=== PATIENT | female | born 1960 | race Caucasian/White ===

== ENCOUNTER 2017-06-14 21:43 | Emergency (ER) | payer OTHER ==
[~2017-06-14] VITALS: Ht 170.2 cm; Wt 90.0 kg
[~2017-06-14 21:43] MED LIST: CALTTAB2 PO; CETI10 PO; CYAN1000P IM; FLUT1SPR9 NASAL; FOSA70TA PO; IBUP600T26 PO; Z.0.WALKERFRONT; [UNRECOGNIZED DRUG - CODE] IM
[2017-06-14 21:54] VITALS: BP 126/76; PULSE 74; RESP 16; TEMP 98.5; O2SAT 97
--- NOTE | 2017-06-14 22:10 | PD ---
HPI Chief Complaint: Psychiatric Symptoms Time Seen by Provider: 22:06 Travel History International Travel<30 days: No Contact w/Intl Traveler<30days: No Traveled to known affect area: No History of Present Illness HPI 56 year old female presents to the emergency department for psychiatric evaluation under Morris Act by police. According to the Morris Act, the patient wrote text messages to her sister making plans for her dogs and estate. According to the Morris Act, the patient took an unknown amount of pills. The patient denies this. She states she took 1 hydrocodone for her arthritis. The patient adamantly denies any suicidal or homicidal ideation. She adamantly denies overdosing on pills. The Morris Act states there was an empty pill bottle in the residence. The patient states she doesn't have any idea what that was. I asked the officer who Morris Acter her and he stated it was an unmarked bottle and states she denied taking any medications to him too. The patient denies any complaints at this time. She states she is worried about her kids, which are actually her dogs. Patient states she had 1 glass of wine. She denies any tobacco use or illicit drug use. PFSH Past Medical History Hx Anticoagulant Therapy: No Blood Disorders: No Anxiety: Yes Cancer: No Cardiovascular Problems: No Chemotherapy: No Cerebrovascular Accident: No Diabetes: No Diminished Hearing: No Endocrine: No Genitourinary: No Hepatitis: No Hiatal Hernia: No Immune Disorder: No Musculoskeletal: Yes (CHRONIC BACK PAIN) Neurologic: No (l hand numbness in past) Psychiatric: No Reproductive: No Respiratory: No Immunizations Current: No Radiation Therapy: No Thyroid Disease: No Tetanus Vaccination: > 5 Years Influenza Vaccination: No Menopausal: Yes : 2 Para: 0 Miscarriage: 2 Past Surgical History Abdominal Surgery: Yes (gastric bypass) AICD: No Arteriovenous Shunt: No Body Medical Devices: plates in wrist bilat, l hip Cholecystectomy: Yes Ear Surgery: No Eye Surgery: No Genitourinary Surgery: No Gynecologic Surgery: No Hysterectomy: No Insulin Pump: No Joint Replacement: Yes (rt hip) Oral Surgery: No Pacemaker: No Tonsillectomy: Yes Other Surgery: Yes (left hip, left knee, right ankle ) Social History Alcohol Use: Yes (few times per week) Tobacco Use: No Substance Use: No Allergies-Medications (Allergen,Severity, Reaction): Coded Allergies: No Known Allergies (Verified , 7/31/17) Reported Meds & Prescriptions Reported Meds & Active Scripts Active Reported Hydrocodone-Acetaminophen 7.5-325 mg Tab 1 Tab PO Q4H PRN Review of Systems Except as stated in HPI: all other systems reviewed are Neg Physical Exam Narrative GENERAL: Well-nourished, well-developed female patient, ambulatory. Afebrile. Patient has smell of alcohol on her breath. SKIN: Focused skin assessment warm/dry. HEAD: Normocephalic. Atraumatic. EYES: No scleral icterus. No injection or drainage. NECK: Supple, trachea midline. No JVD or lymphadenopathy. CARDIOVASCULAR: Regular rate and rhythm without murmurs, gallops, or rubs. RESPIRATORY: Breath sounds equal bilaterally. No accessory muscle use. Lungs sounds are clear to auscultation. GASTROINTESTINAL: Abdomen soft, non-tender, nondistended. MUSCULOSKELETAL: No cyanosis, or edema. PSYCHIATRIC: No delusional thought processes. No hallucinations. Data Data Last Documented VS Vital Signs Date Time Temp Pulse Resp B/P Pulse Ox O2 Delivery O2 Flow Rate FiO2 06/14/17 21:55 73 16 06/14/17 21:54 98.5 126/76 97 Orders Complete Blood Count With Diff (06/14/17 22:05) Comprehensive Metabolic Panel (06/14/17 22:05) Psych Screen (06/14/17 22:05) Drug Screen, Random Urine (06/14/17 22:05) Alcohol (Ethanol) (06/14/17 22:05) Salicylates (Aspirin) (06/14/17 22:05) Tylenol (Acetaminophen) (06/14/17 22:05) Potassium, Serum (K) (06/14/17 23:03) Labs Laboratory Tests Test 06/14/17 22:10 White Blood Count 5.0 TH/MM3 Red Blood Count 4.63 MIL/MM3 Hemoglobin 14.2 GM/DL Hematocrit 43.7 % Mean Corpuscular Volume 94.4 FL Mean Corpuscular Hemoglobin 30.7 PG Mean Corpuscular Hemoglobin 32.5 % Concent Red Cell Distribution Width 16.6 % Platelet Count 170 TH/MM3 Mean Platelet Volume 10.0 FL Neutrophils (%) (Auto) 48.1 % Lymphocytes (%) (Auto) 40.6 % Monocytes (%) (Auto) 5.3 % Eosinophils (%) (Auto) 5.3 % Basophils (%) (Auto) 0.7 % Neutrophils # (Auto) 2.4 TH/MM3 Lymphocytes # (Auto) 2.0 TH/MM3 Monocytes # (Auto) 0.3 TH/MM3 Eosinophils # (Auto) 0.3 TH/MM3 Basophils # (Auto) 0.0 TH/MM3 CBC Comment DIFF FINAL Differential Comment Sodium Level 140 MEQ/L Potassium Level 5.8 MEQ/L Chloride Level 107 MEQ/L Carbon Dioxide Level 24.7 MEQ/L Anion Gap 8 MEQ/L Blood Urea Nitrogen 12 MG/DL Creatinine 0.65 MG/DL Estimat Glomerular Filtration 94 ML/MIN Rate Random Glucose 78 MG/DL Calcium Level 9.1 MG/DL Total Bilirubin 0.3 MG/DL Aspartate Amino Transf 56 U/L (AST/SGOT) Alanine Aminotransferase 29 U/L (ALT/SGPT) Alkaline Phosphatase 109 U/L Total Protein 7.8 GM/DL Albumin 3.6 GM/DL Salicylates Level LESS THAN 1.7 MG/DL Acetaminophen Level LESS THAN 2.0 MCG/ML Ethyl Alcohol Level 200 MG/DL [facility] Medical Decision Making Medical Screen Exam Complete: Yes Emergency Medical Condition: Yes Medical Record Reviewed: Yes Differential Diagnosis Depression versus anxiety versus medication overdose versus medical clearance Narrative Course 56-year-old female presents to the emergency Department under Morris act by local police. The patient denies taking any medications other than one hydrocodone today. She does state she had one glass of wine. She has no complaints at this time. CBC, CMP, alcohol level, urine drug screen, salicylate level, Tylenol level are ordered and pending. CBC shows no acute abnormality. CMP shows hyperkalemia of 5.8. Salicylate level is less than 1.7. Acetaminophen levels less than 2.0. Alcohol level is 200. Potassium level will be rechecked. Patient will be medically cleared if potassium is within normal limits. Diagnosis Primary Impression: Medical clearance for psychiatric admission Condition: Stable Aurea Hernández Jun 14, 2017 22:10
[2017-06-14] MEDS ORDERED: HYDR-3580 PO (22:11)
[2017-06-14 22:24] LABS: AUTOMATED NEUTROPHIL # 2.4 TH/MM3 (1.8-7.7); BASOPHIL % 0.7 % (0.0-2.0); EOSINOPHIL # 0.3 TH/MM3 (0-0.4); EOSINOPHIL % 5.3 % (0.0-4.0); HEMATOCRIT 43.7 % (35.0-46.0); HEMO FLAGS DIFF FINAL; LYMPH % 40.6 % (9.0-44.0); MEAN CELL VOLUME 94.4 FL (80.0-100.0); MEAN CORPUSCULAR HEMOGLOBIN 30.7 PG (27.0-34.0); MEAN CORPUSCULAR HGB CONC 32.5 % (32.0-36.0); MONO % 5.3 % (0.0-8.0); NEUT % 48.1 % (16.0-70.0); PLATELET COUNT 170 TH/MM3 (150-450); RED BLOOD COUNT 4.63 MIL/MM3 (4.00-5.30); RED CELL DISTRIBUTION WIDTH 16.6 % (11.6-17.2)
[2017-06-14 22:45] LABS: ALKALINE PHOSPHATASE 109 U/L (45-117); ALT (GPT) 29 U/L (10-53); TOTAL BILIRUBIN ADULT 0.3 MG/DL (0.2-1.0)
[2017-06-14 23:00] LABS: ANION GAP 8 MEQ/L (5-15); AST (GOT) 56 U/L (15-37); BICARBONATE 24.7 MEQ/L (21.0-32.0); BLOOD UREA NITROGEN 12 MG/DL (7-18); CHLORIDE 107 MEQ/L (98-107); GLOMERULAR FILTRATION RATE 94 ML/MIN (>89); SODIUM (NA) 140 MEQ/L (136-145)
[2017-06-14 23:01] LABS: ACETAMINOPHEN LESS THAN 2.0 MCG/ML (10.0-30.0); POTASSIUM 5.8 MEQ/L (3.5-5.1)
--- NOTE | 2017-06-15 00:04 | PD ---
Physical Exam Narrative Patient was seen by me in my senior office assistant. Data Data Last Documented VS Vital Signs Date Time Temp Pulse Resp B/P Pulse Ox O2 Delivery O2 Flow Rate FiO2 06/15/17 04:45 98.0 71 16 117/78 99 Room Air Orders Complete Blood Count With Diff (06/14/17 22:05) Comprehensive Metabolic Panel (06/14/17 22:05) Psych Screen (06/14/17 22:05) Drug Screen, Random Urine (06/14/17 22:05) Alcohol (Ethanol) (06/14/17 22:05) Salicylates (Aspirin) (06/14/17 22:05) Tylenol (Acetaminophen) (06/14/17 22:05) Potassium, Serum (K) (06/14/17 23:03) Diet Regular Basic (06/15/17 Breakfast) Labs Laboratory Tests Test 06/14/17 06/14/17 06/14/17 22:10 23:06 23:55 White Blood Count 5.0 TH/MM3 Red Blood Count 4.63 MIL/MM3 Hemoglobin 14.2 GM/DL Hematocrit 43.7 % Mean Corpuscular Volume 94.4 FL Mean Corpuscular Hemoglobin 30.7 PG Mean Corpuscular Hemoglobin 32.5 % Concent Red Cell Distribution Width 16.6 % Platelet Count 170 TH/MM3 Mean Platelet Volume 10.0 FL Neutrophils (%) (Auto) 48.1 % Lymphocytes (%) (Auto) 40.6 % Monocytes (%) (Auto) 5.3 % Eosinophils (%) (Auto) 5.3 % Basophils (%) (Auto) 0.7 % Neutrophils # (Auto) 2.4 TH/MM3 Lymphocytes # (Auto) 2.0 TH/MM3 Monocytes # (Auto) 0.3 TH/MM3 Eosinophils # (Auto) 0.3 TH/MM3 Basophils # (Auto) 0.0 TH/MM3 CBC Comment DIFF FINAL Differential Comment Sodium Level 140 MEQ/L Potassium Level 5.8 MEQ/L 4.1 MEQ/L Chloride Level 107 MEQ/L Carbon Dioxide Level 24.7 MEQ/L Anion Gap 8 MEQ/L Blood Urea Nitrogen 12 MG/DL Creatinine 0.65 MG/DL Estimat Glomerular Filtration 94 ML/MIN Rate Random Glucose 78 MG/DL Calcium Level 9.1 MG/DL Total Bilirubin 0.3 MG/DL Aspartate Amino Transf 56 U/L (AST/SGOT) Alanine Aminotransferase 29 U/L (ALT/SGPT) Alkaline Phosphatase 109 U/L Total Protein 7.8 GM/DL Albumin 3.6 GM/DL Salicylates Level LESS THAN 1.7 MG/DL Acetaminophen Level LESS THAN 2.0 MCG/ML Ethyl Alcohol Level 200 MG/DL Urine Opiates Screen NEG Urine Barbiturates Screen NEG Urine Amphetamines Screen NEG Urine Benzodiazepines Screen POS Urine Cocaine Screen NEG Urine Cannabinoids Screen POS MDM Supervised Visit with JORDY: Yes Narrative Course 12:04 AM. Patient is medically cleared for psychiatric evaluation and disposition. Diagnosis Primary Impression: Medical clearance for psychiatric admission Condition: Stable Jacoby Waldron MD Jun 15, 2017 00:04
[2017-06-15 00:14] LABS: AMPHETAMINE, URINE NEG (NEG); BARBITURATES, URINE NEG (NEG); COCAINE, URINE NEG (NEG)
[2017-06-15 04:45] VITALS: BP 117/78; PULSE 71; RESP 16; TEMP 98; O2SAT 99
[2017-06-15 10:00] VITALS: BP 132/86; PULSE 86; RESP 19; TEMP 98.1; O2SAT 97
--- NOTE | 2017-06-15 12:09 | PD ---
History of Present Illness Chief Complaint: Psychiatric Symptoms Time Seen by Provider: 11:45 Travel History International Travel<30 Days: No Contact w/Intl Traveler<30days: No Known affected area: No Legal Status Legal Status: Morris Act Morris Act Signed By: Brian Brown Morris Act Comment: 2016 @ [id number] History of Present Illness: History of Present Illness HPI 56 year old female with no previous psychiatric history who presents to the emergency department for psychiatric evaluation under Morris Act initiated by police. The report alleges that the patient sent messages via text to her sister making plans for her dogs and her estate. According to the Morris Act , the patient took an unknown amount of pills. The patient presented to ED intoxicated with BAL of 200. Positive for cannabinoids as well as benzos. The patient is seen in main Ed. Sitter at bedside. She is alert and oriented, calm, engaging and cooperative. She is clinically sober. She denies any suicidal ideation, intent or plan. Denies that she " took a bunch of pills" and that she only took what is prescribed for her. States that she did send those messages to her sister but that it was not as a suicidal plan but rather she was worried over her dogs if something were to happen to her. She was intoxicated at the time. She minimizes her use of alcohol at this time. She denies feeling depressed. She continues to state that she will never harm herself as she loves her pets which she calls " my babies". " I would never leave them alone". Telephone call to patient's boyfriend, Chris Banuelos with her authorization. [phone]. He informs me that the patient was intoxicated and made calls to him as well as her sister. That she was " out of control" and therefore they called the police. he also states that these episodes happen when she drinks alcohol and takes her pain medication. he will pick her up if she is discharged. PFSH Past Medical History Hx Anticoagulant Therapy: No Blood Disorders: No Anxiety: Yes Cancer: No Cardiovascular Problems: No Chemotherapy: No Cerebrovascular Accident: No Diabetes: No Diminished Hearing: No Endocrine: No Genitourinary: No Hepatitis: No Hiatal Hernia: No Immune Disorder: No Musculoskeletal: Yes (CHRONIC BACK PAIN) Neurologic: No (l hand numbness in past) Psychiatric: No Reproductive: No Respiratory: No Immunizations Current: No Radiation Therapy: No Thyroid Disease: No Tetanus Vaccination: > 5 Years Influenza Vaccination: No Menopausal: Yes : 2 Para: 0 Miscarriage: 2 Past Surgical History Abdominal Surgery: Yes (gastric bypass) AICD: No Arteriovenous Shunt: No Body Medical Devices: plates in wrist bilat, l hip Cholecystectomy: Yes Ear Surgery: No Eye Surgery: No Genitourinary Surgery: No Gynecologic Surgery: No Hysterectomy: No Insulin Pump: No Joint Replacement: Yes (rt hip) Oral Surgery: No Pacemaker: No Tonsillectomy: Yes Other Surgery: Yes (left hip, left knee, right ankle ) Psychiatric History Psychiatric History Hx Psychiatric Treatment: Deneis any History of Inpatient Treatment: No Guns or firearms in home: No Social History Single female. Lives by self with her 2 dogs.. Has worked as a [employer] for the past 9 years. Hx Alcohol Use: Yes (few times per week) Hx Tobacco Use: No Hx Substance Use: No Substance Use Type: Alcohol, Marijuana Hx of Substance Use Treatment: No Family Psychiatric History None Allergies-Medications (Allergen,Severity, Reaction): Coded Allergies: No Known Allergies (Verified , 06/14/17) Reported Meds & Prescriptions Reported Meds & Active Scripts Active Reported Hydrocodone-Acetaminophen 7.5-325 mg Tab 1 Tab PO Q4H PRN Review of Systems Except as stated in HPI: all other systems reviewed are Neg Musculoskeletal: COMPLAINS OF: Joint pain, Stiffness Exam Alert: Yes [place]ish: Person (ox4) Mood: Calm Affect: Appropriate Speech: Clear, Logical Eye Contact: Normal Memory Intact: Comment (No impairmetn) Hallucinations: Other (Negative) Delusions: No Suicidal: Ideation (denies) Homicidal: Ideation (deneis) Insight/Judgement Poor. not impaired. MDM Medical Decision Making Medical Record Reviewed: Yes Assessment/Plan 56 year old female with no previous psychiatric history who in context of alcohol intoxication as well as marijuana use sent messages via text to her sister making plans for her dogs and her estate. The patient denies that this was a suicide plan but that rather she was making plans for the future because she does not want her sister to care for her dogs. She minimizes her use of alcohol and marijuana . She denies any suicidality and does not present any acute psychiatric symptomatology. She is requesting discharge as she has to go to work as well as she is worried over her dogs. I have counseled her on sobriety, AA but patient at this time denies she has a problem with her use of alcohol Does not meet BA criteria. ready for discharge from psychiatry. Orders Complete Blood Count With Diff (06/14/17 22:05) Comprehensive Metabolic Panel (06/14/17 22:05) Psych Screen (06/14/17 22:05) Drug Screen, Random Urine (06/14/17 22:05) Alcohol (Ethanol) (06/14/17 22:05) Salicylates (Aspirin) (06/14/17 22:05) Tylenol (Acetaminophen) (06/14/17 22:05) Potassium, Serum (K) (06/14/17 23:03) Diet Regular Basic (06/15/17 Breakfast) Results Vital Signs Date Time Temp Pulse Resp B/P Pulse Ox O2 Delivery O2 Flow Rate FiO2 06/15/17 10:00 98.1 86 19 132/86 97 Room Air 06/15/17 04:45 98.0 71 16 117/78 99 Room Air 06/14/17 21:55 73 16 06/14/17 21:54 98.5 74 16 126/76 97 Laboratory Tests Test 06/14/17 06/14/17 06/14/17 22:10 23:06 23:55 White Blood Count 5.0 Red Blood Count 4.63 Hemoglobin 14.2 Hematocrit 43.7 Mean Corpuscular Volume 94.4 Mean Corpuscular Hemoglobin 30.7 Mean Corpuscular Hemoglobin 32.5 Concent Red Cell Distribution Width 16.6 Platelet Count 170 Mean Platelet Volume 10.0 Neutrophils (%) (Auto) 48.1 Lymphocytes (%) (Auto) 40.6 Monocytes (%) (Auto) 5.3 Eosinophils (%) (Auto) 5.3 Basophils (%) (Auto) 0.7 Neutrophils # (Auto) 2.4 Lymphocytes # (Auto) 2.0 Monocytes # (Auto) 0.3 Eosinophils # (Auto) 0.3 Basophils # (Auto) 0.0 CBC Comment DIFF FINAL Differential Comment Sodium Level 140 Potassium Level 5.8 4.1 Chloride Level 107 Carbon Dioxide Level 24.7 Anion Gap 8 Blood Urea Nitrogen 12 Creatinine 0.65 Estimat Glomerular Filtration 94 Rate Random Glucose 78 Calcium Level 9.1 Total Bilirubin 0.3 Aspartate Amino Transf 56 (AST/SGOT) Alanine Aminotransferase 29 (ALT/SGPT) Alkaline Phosphatase 109 Total Protein 7.8 Albumin 3.6 Salicylates Level LESS THAN 1.7 Acetaminophen Level LESS THAN 2.0 Ethyl Alcohol Level 200 Urine Opiates Screen NEG Urine Barbiturates Screen NEG Urine Amphetamines Screen NEG Urine Benzodiazepines Screen POS Urine Cocaine Screen NEG Urine Cannabinoids Screen POS Diagnosis Primary Impression: Alcohol abuse Additional Impression: Medical clearance for psychiatric admission Psychiatrically Cleared: Yes Med/ Other Pt Specific Info: No Meds Exist/No RX given Disposition: 01 DISCHARGE HOME Condition: Stable Problem Qualifiers Britat Modi Jun 15, 2017 12:09
[2017-06-15 12:21] VITALS: BP 130/77; TEMP 97.8
== END 2017-06-15 12:30 | disposition home or self-care (01) ==
LOC: NEPE 21:43
DX: Z02.89 Encounter for other administrative examinations (principal); F10.10 Alcohol abuse, uncomplicated; Z79.899 Other long term (current) drug therapy; Z86.59 Personal history of other mental and behavioral disorders; Z87.39 Personal history of other diseases of the musculoskeletal system and connective tissue
CPT/HCPCS: 80053; 80307; 84132; 85025; 99284

== ENCOUNTER 2017-06-19 13:17 | Emergency (ER) | payer OTHER ==
[~2017-06-19] VITALS: Ht 165.1 cm; Wt 73.0 kg
[~2017-06-19 13:17] MED LIST changes: -CALTTAB2 PO; -CETI10 PO; -CYAN1000P IM; -FLUT1SPR9 NASAL; -FOSA70TA PO; +HYDR-3580 PO; -IBUP600T26 PO; -Z.0.WALKERFRONT; -[UNRECOGNIZED DRUG - CODE] IM
[2017-06-19 13:23] VITALS: BP 110/79; PULSE 90; RESP 17; TEMP 98.7; O2SAT 98
[2017-06-19] MEDS ORDERED: CEPH-460 PO (13:44)
--- NOTE | 2017-06-19 13:45 | PD ---
HPI Chief Complaint: Laceration/Skin Injury Time Seen by Provider: 13:40 Travel History International Travel<30 days: No Contact w/Intl Traveler<30days: No Traveled to known affect area: No History of Present Illness HPI 56-year-old female presents to the emergency department for evaluation of a laceration to the volar aspect of her left second finger that occurred yesterday at 7 PM. This was approximately 18 hours ago. She states she was cutting something with a knife when it slipped and cut her left finger. The patient states her tetanus immunization has been within 5 years. She denies any loss of range of motion. She states it is throbbing. She denies any other injury. She has no other complaints at this time. PFSH Past Medical History Hx Anticoagulant Therapy: No Blood Disorders: No Anxiety: Yes Cancer: No Cardiovascular Problems: No Chemotherapy: No Cerebrovascular Accident: No Diabetes: No Diminished Hearing: No Endocrine: No Gastrointestinal Disorders: No Genitourinary: No Hepatitis: No Hiatal Hernia: No Hypertension: No Immune Disorder: No Musculoskeletal: Yes (CHRONIC BACK PAIN) Neurologic: No (l hand numbness in past) Psychiatric: No Reproductive: No Respiratory: No Immunizations Current: No Radiation Therapy: No Thyroid Disease: No LMP: MENOPAUSAL Menopausal: Yes : 2 Para: 0 Miscarriage: 2 Past Surgical History Abdominal Surgery: Yes (gastric bypass) AICD: No Arteriovenous Shunt: No Body Medical Devices: plates in wrist bilat, l hip Cholecystectomy: Yes Ear Surgery: No Eye Surgery: No Genitourinary Surgery: No Gynecologic Surgery: No Hysterectomy: No Insulin Pump: No Joint Replacement: Yes (rt hip) Oral Surgery: No Pacemaker: No Tonsillectomy: Yes Other Surgery: Yes (left hip, left knee, right ankle ) Social History Alcohol Use: Yes (few times per week) Tobacco Use: No Substance Use: No Allergies-Medications (Allergen,Severity, Reaction): Coded Allergies: No Known Allergies (Verified , 06/19/17) Reported Meds & Prescriptions Reported Meds & Active Scripts Active No Active Prescriptions or Reported Medications Review of Systems Except as stated in HPI: all other systems reviewed are Neg Physical Exam Narrative GENERAL: Well-nourished, well-developed female patient, afebrile SKIN: Focused skin assessment warm/dry. Patient has superficial 1 cm laceration to volar aspect of the left second finger. No active bleeding. HEAD: Normocephalic. Atraumatic. EYES: No scleral icterus. No injection or drainage. NECK: Supple, trachea midline. No JVD or lymphadenopathy. CARDIOVASCULAR: Regular rate and rhythm without murmurs, gallops, or rubs. RESPIRATORY: Breath sounds equal bilaterally. No accessory muscle use. Lungs sounds are clear to auscultation GASTROINTESTINAL: Abdomen soft, non-tender, nondistended. MUSCULOSKELETAL: No cyanosis, or edema. Data Data Last Documented VS Vital Signs Date Time Temp Pulse Resp B/P Pulse Ox O2 Delivery O2 Flow Rate FiO2 06/19/17 13:23 98.7 90 17 110/79 98 Orders Wound Care (06/19/17 13:39) MDM Medical Decision Making Medical Screen Exam Complete: Yes Emergency Medical Condition: Yes Medical Record Reviewed: Yes Differential Diagnosis Laceration versus abrasion versus contusion Narrative Course 56-year-old female presents to the emergency department for evaluation of laceration to the volar aspect of the left second finger, distal aspect. The laceration is superficial. There is no active bleeding. It has been approximately 18 hours since the laceration occurred. Due to this, I do not recommend suturing at this time. Wound care is completed in the emergency department. She'll be discharged with a prescription for Keflex. She is instructed on proper wound halfway. She verbalizes agreement and understanding. The patient was discharged in stable condition with instructions, including return instructions and follow up instructions. Diagnosis Primary Impression: Laceration of finger Qualified Code: S61.211A - Laceration of left index finger without foreign body without damage to nail, initial encounter Referrals: Primary Care Physician call for appointment Patient Instructions: Finger Laceration (ED), General Instructions Additional Instructions: Clean twice daily with soap and water and apply [id number] antibiotic ointment. Keep clean and dry. No swimming or hot tubs until healed. Take antibiotic as directed until gone. Follow-up with your primary care physician. Return to the emergency department for any acute worsening of symptoms. Med/Other Pt SpecificInfo: Prescription(s) given Scripts Cephalexin (Keflex)500 Mg Cih441 Mg PO Q8H 7 Days Ref 0 Prov:Aurea Hernández 06/19/17 Disposition: 01 DISCHARGE HOME Condition: Stable Aurea Hernández Jun 19, 2017 13:45
== END 2017-06-19 14:33 | disposition home or self-care (01) ==
LOC: PHED 13:17
DX: S61.211A Laceration without foreign body of left index finger without damage to nail, initial encounter (principal); W26.0XXA Contact with knife, initial encounter
CPT/HCPCS: 99283

== ENCOUNTER 2017-09-24 21:38 | Emergency (ER) | payer OTHER ==
[~2017-09-24] VITALS: Ht 157.5 cm; Wt 70.0 kg
[~2017-09-24 21:38] MED LIST changes: +CEPH-460 PO; -HYDR-3580 PO
[2017-09-24 21:56] VITALS: BP 125/82; PULSE 92; RESP 18; TEMP 97.6; O2SAT 96
--- NOTE | 2017-09-24 22:48 | PD ---
HPI Chief Complaint: Alcohol/Drug Intoxication Time Seen by Provider: 21:54 Travel History International Travel<30 days: No Contact w/Intl Traveler<30days: No Traveled to known affect area: No History of Present Illness HPI 57-year-old white female presents to emergency department under [place] act due to alcohol intoxication. It was felt that the patient was unable to care for herself. It was noted that she was only 2 houses away from where she had been living. She was drinking alcohol at the hospital. She states that she was celebrating her partners per day. Patient denies any suicidal homicidal ideation. Denies any toxic ingestions. She admits to heavy alcohol intake. PFSH Past Medical History Hx Anticoagulant Therapy: No Blood Disorders: No Anxiety: Yes Cancer: No Cardiovascular Problems: No Chemotherapy: No Cerebrovascular Accident: No Diabetes: No Patient Takes Glucophage: No Diminished Hearing: No Endocrine: No Gastrointestinal Disorders: No Genitourinary: No Hepatitis: No Hiatal Hernia: No Hypertension: No Immune Disorder: No Musculoskeletal: Yes (CHRONIC BACK PAIN) Psychiatric: No Reproductive: No Respiratory: No Immunizations Current: No Radiation Therapy: No Thyroid Disease: No Tetanus Vaccination: > 5 Years Influenza Vaccination: No ?: Not Menopausal: Yes : 2 Para: 0 Miscarriage: 2 Past Surgical History Abdominal Surgery: Yes (gastric bypass) AICD: No Arteriovenous Shunt: No Body Medical Devices: plates in wrist bilat, l hip Cholecystectomy: Yes Ear Surgery: No Eye Surgery: No Genitourinary Surgery: No Gynecologic Surgery: No Hysterectomy: No Insulin Pump: No Joint Replacement: Yes (rt hip) Oral Surgery: No Pacemaker: No Tonsillectomy: Yes Other Surgery: Yes (left hip, left knee, right ankle ) Social History Alcohol Use: Yes (few times per week) Tobacco Use: No Substance Use: No Allergies-Medications (Allergen,Severity, Reaction): Coded Allergies: No Known Allergies (Verified Adverse Reaction, Unknown, 09/24/17) Reported Meds & Prescriptions Reported Meds & Active Scripts Active No Active Prescriptions or Reported Medications Review of Systems ROS Limitations: Intoxication Physical Exam Narrative GENERAL: Well-nourished, well-developed patient. Appears intoxicated. No evidence of trauma. Patient is well-dressed and has impeccable makeup. SKIN: Warm and dry. HEAD: Normocephalic and atraumatic. EYES: No scleral icterus. No injection or drainage. ENT: No nasal drainage noted. Mucous membranes pink. Airway patent. NECK: Supple, trachea midline. Moves head freely without obvious discomfort. CARDIOVASCULAR: Regular rate and rhythm without murmurs, gallops, or rubs. RESPIRATORY: Breath sounds equal bilaterally. No accessory muscle use. GASTROINTESTINAL: Abdomen soft, non-tender, nondistended. EXTREMITIES: No cyanosis or edema. BACK: Nontender without obvious deformity. No CVA tenderness. NEURO: Patient is alert and oriented. no sensorimotor deficits. Ataxic secondary to alcohol. Nonfocal. Slurred speech. PSYCH: No delusions. No auditory or visual hallucinations. Data Data Last Documented VS Vital Signs Date Time Temp Pulse Resp B/P (MAP) Pulse Ox O2 Delivery O2 Flow Rate FiO2 09/24/17 21:56 97.6 92 18 125/82 (96) 96 MDM Medical Decision Making Medical Screen Exam Complete: Yes Emergency Medical Condition: Yes Medical Record Reviewed: Yes Differential Diagnosis Differential diagnoses: Alcohol intoxication, substance abuse, electrolyte abnormality, malingering Narrative Course The patient is unable to contact anyone to pick her up this evening. She is instructed to sleep it off here when she exhibits sobriety in the morning her act will be lifted and she'll be discharged. This is alcohol intoxication Diagnosis Primary Impression: Alcohol intoxication Qualified Codes: F10.920 - Alcohol use, unspecified with intoxication, uncomplicated Patient Instructions: General Instructions Additional Instructions: Rest. Increase fluids. Avoid alcohol. Avoid illegal substances. Do not operate a car or any heavy machinery under the influence of alcohol or drugs. Follow-up with a medical doctor this week. Return to the ER for emergencies Med/Other Pt SpecificInfo: No Meds Exist/No RX given Scripts No Active Prescriptions or Reported Meds Disposition: 01 DISCHARGE HOME Condition: Stable Uriah Chandler Sep 24, 2017 22:48
== END 2017-09-25 06:51 | disposition home or self-care (01) ==
LOC: NEPD 21:38
DX: F10.129 Alcohol abuse with intoxication, unspecified (principal); F41.9 Anxiety disorder, unspecified
CPT/HCPCS: 99283